=== PATIENT | female | born 1995 | race Caucasian/White ===

== ENCOUNTER 2018-01-08 21:09 | Emergency (ER) | payer OTHER ==
[~2018-01-08] VITALS: Ht 162.6 cm; Wt 68.0 kg
[2018-01-08] MEDS ORDERED: GLUCOPHAGE850 M2 PO (21:22)
[2018-01-08 21:43] LABS: ABSOLUTE BASOPHIL COUNT 0 /CUMM (0.0-0.2); ABSOLUTE EOSINOPHIL COUNT 0.4 /CUMM (0.0-0.7); ABSOLUTE LYMPH COUNT 3.1 /CUMM (1.2-3.4); ABSOLUTE MONOCYTE COUNT 0.7 /CUMM (0.10-0.60); BASOPHIL % 0.4 % (0.0-2.0); EOSINOPHIL % 4.6 % (0-5); GRANULOCYTE % 54.1 % (42.2-75.2); HEMATOCRIT 36.8 % (37-47); MEAN CORPUSCULAR HGB 27.9 PG (27.0-31.0); MEAN CORPUSCULAR HGB CONC 32.4 G/DL (33.0-37.0); MEAN CORPUSCULAR VOLUME 86.1 FL (81.0-99.0); MEAN PLATELET VOLUME 10.4 FL (7.4-10.4); PLATELET COUNT 232 /CUMM (130-400); RBC DISTRIBUTION WIDTH 13.4 % (11.5-14.5); RED BLOOD CELL CT 4.27 /CUMM (4.20-5.40); WHITE BLOOD CELL COUNT 9.3 /CUMM (4.8-10.8)
--- NOTE | 2018-01-08 22:33 | ED CARDIAC/CP/PALPITATIONS ---
History of Present Illness General Chief Complaint: Palpitations Stated Complaint: WAS IN SVT PER EMS Source: patient, old records, EMS, friend Exam Limitations: no limitations Vital Signs & Intake/Output Vital Signs & Intake/Output Vital Signs Date Time Temp Pulse Resp B/P B/P Pulse O2 O2 Flow FiO2 Mean Ox Delivery Rate 01/08 2348 98.2 101 20 123/55 99 01/08 2242 107 18 157/64 100 Room Air 01/08 2118 98.5 104 20 126/76 98 Room Air ED Intake and Output 01/09 0000 01/08 1200 Intake Total Output Total Balance Patient 150 lb Weight Weight Reported by Patient Measurement Method Allergies Coded Allergies: sulfamethoxazole (From BACTRIM) (HIVES 01/08/18) trimethoprim (From BACTRIM) (HIVES 01/08/18) Reconcile Medications Metformin HCl (Glucophage) 850 MG TABLET 1 TAB PO BID POLY CYSTIC KIDNEY ( Reported) Triage Note: PER PT AND EMS WAS WORKING OUT AND FELT PALPATATIONS, WENT BACK TO ROOM AND HEART WAS RACING, PT CALLED 911 PER EMS SVT [id number] HX OF SAME ON OCCASION SINCE CHILD. GIVEN 6 OF ADENOSINE WITH + RESPONSE. HR 100 UPON ARRIVAL NO CO PAIN SOB SL ANXIOUS Triage Nurses Notes Reviewed? yes Onset: Just prior to arrival Duration: minute(s):, better, constant Timing: recent history Quality/Severity: severe Location: substernal Radiation: no radiation Activities at Onset: activity Prior Chest Pain/Card Workup: no prior chest pain Nitro Today/Relief: no nitro taken today Aspirin Today: no aspirin today LMP (ages 10-50): unknown : No Patient currently breastfeeds: No HPI: Prior to admission while exercising on the treadmill patient felt rapid heartbeat dizziness diaphoresis. EMS found her to have SVT and gave 6 mg of adenosine resulting in sinus tachycardia. She denies fever chills nausea vomiting diarrhea abdominal pain chest pain shortness of breath headache dysuria rash bleeding. Past History Travel History Traveled to [place] past 21 day No Medical History Any Pertinent Medical History? see below for history Neurological: NONE EENT: NONE Cardiovascular: NONE Respiratory: NONE Gastrointestinal: NONE Hepatic: NONE Renal: POLY CYSTIC KIDNEY Musculoskeletal: NONE Psychiatric: NONE Endocrine: NONE Surgical History Surgical History: non-contributory Psychosocial History What is your primary language Nauruan Tobacco Use: Never used Family History Hx Contributory? No Review of Systems Review of Systems Constitutional: Reports: no symptoms. EENTM: Reports: no symptoms. Respiratory: Reports: no symptoms. Cardiovascular: Reports: see HPI, palpitations. GI: Reports: no symptoms. Genitourinary: Reports: no symptoms. Musculoskeletal: Reports: no symptoms. Skin: Reports: no symptoms. Neurological/Psychological: Reports: no symptoms. Hematologic/Endocrine: Reports: no symptoms. Immunologic/Allergic: Reports: no symptoms. All Other Systems: Reviewed and Negative Physical Exam Physical Exam General Appearance: well developed/nourished, alert, awake, anxious, mild distress, obese Head: atraumatic, normal appearance Eyes: Bilateral: normal appearance, PERRL, EOMI. Ears, Nose, Throat: normal pharynx, normal ENT inspection Neck: normal inspection, supple, full range of motion, no midline tenderness Respiratory: normal breath sounds, chest non-tender, no respiratory distress, quiet respiration, lungs clear Cardiovascular: regular rate/rhythm, normal peripheral pulses, tachycardia, norml femoral pulses equa Peripheral Pulses: 4+ carotid (R), 4+ carotid (L) Gastrointestinal: normal bowel sounds, soft, non-tender, no organomegaly Back: normal inspection, normal range of motion Extremities: normal inspection, normal capillary refill, normal range of motion, no edema Neurologic/Psych: no motor/sensory deficits, awake, alert, oriented x 3, normal gait, normal mood/affect, napper grinder II-XII nml as tested Reflexes: 2+: bicep (R), bicep (L). Skin: intact, normal color, warm/dry Lymphatic: no anterior cervical darlene Core Measures ACS in differential dx? No CVA/TIA Diagnosis No Sepsis Present: No Sepsis Focused Exam Completed? No Progress Differential Diagnosis: atrial fibrillation, hyperthyroid, pneumonia, PSVT Plan of Care: Orders Procedure Date/time Status Add-on Test (ER Only) 01/08 2134 Active Add-on Test (ER Only) 01/08 2127 Active TSH REFLEX 01/08 2123 Complete TROPONIN LEVEL 01/08 2123 Complete MAGNESIUM 01/08 2123 Complete HUMAN BETA HCG SCREEN 01/08 2123 Complete COMPREHENSIVE METABOLIC PANEL 01/08 2123 Complete CBC WITHOUT DIFFERENTIAL 01/08 2123 Complete EKG 01/08 2110 Active Laboratory Tests 01/08/182129: Anion Gap 13, Estimated GFR > 60, BUN/Creatinine Ratio 22.5, Glucose 103 H, Calcium 9.8, Magnesium 1.5 L, Total Bilirubin 0.3, AST 16, ALT 22, Alkaline Phosphatase 78, Troponin I 0.01, Total Protein 6.8, Albumin 4.2, Globulin 2.6, Albumin/Globulin Ratio 1.6, TSH &T3 &Free T4 Intrp 3.460, Total Beta HCG NEGATIVE, CBC w Diff NO MAN DIFF REQ, RBC 4.27, MCV 86.1, MCH 27.9, MCHC 32.4 L , RDW 13.4, MPV 10.4, Gran % 54.1, Lymphocytes % 33.4, Monocytes % 7.5, Eosinophils % 4.6, Basophils % 0.4, Absolute Granulocytes 5.0, Absolute Lymphocytes 3.1, Absolute Monocytes 0.7 H, Absolute Eosinophils 0.4, Absolute Basophils 0 Initial ED EKG: normal axis, normal intervals, normal p-waves, normal QRS complex, rhythm (sinus tachycardia), no ST T wave changes Rhythm Strip: sinus tachycardia Departure Departure Time of Disposition: 2335 Disposition: HOME OR SELF CARE Condition: Stable Clinical Impression Primary Impression: SVT (supraventricular tachycardia) Secondary Impressions: Hypomagnesemia Additional Instructions: Follow up with your doctor when you return home for cardiology referral. Magnesium supplements or multivitamins daily Departure Forms: Customer Survey General Discharge Information Critical Care Note Critical Care Note Critical Care Time: non-applicable
[2018-01-08 23:48] VITALS: BP 123/55
== END 2018-01-09 00:09 ==
LOC: ERH 21:09
PROVIDERS: Emergency Medicine
DX: I47.1 Supraventricular tachycardia (principal); E83.42 Hypomagnesemia
CPT/HCPCS: 93005; 93010; 96374